=== PATIENT | male | born 1995 | race Caucasian/White ===

== ENCOUNTER 2025-02-20 18:42 | Emergency (ER) | payer OTHER ==
[~2025-02-20] VITALS: Ht 180.3 cm; Wt 69.6 kg
[2025-02-20] MEDS ORDERED: PRED10PA PO (18:52)
[2025-02-20] MEDS ORDERED: INFL100I IV (18:52)
[2025-02-20] MEDS ORDERED: PRED10TA2 PO (18:52)
[2025-02-20 20:57] LABS: BASO # 0.0 10^3/uL (0.0-0.2); BASO % 0.1 % (0.0-1.0); EOS # 0.0 10^3/uL (0.0-0.5); EOS % 0.0 % (0.0-3.0); LYMPH # 1.1 10^3/uL (1.5-5.0); LYMPH % 13.2 % (24.0-44.0); MONO # 1.5 10^3/uL (0.0-0.8); MONO % 18.2 % (2.0-8.0); NEUTROPHILS # 5.5 10^3/uL (1.5-8.5); NEUTROPHILS % 68.3 % (36.0-66.0); PLATELET COUNT, AUTOMATED 328 10^3/uL (150-450)
[2025-02-20 21:19] LABS: ALT/SGPT 35 U/L (7.0-40); AST/SGOT 13 U/L (<34); CALCIUM LEVEL 9.1 MG/DL (8.5-10.1); CARBON DIOXIDE LEVEL 34 MMOL/L (20-31); CHLORIDE LEVEL 101 MMOL/L (98-107); CREATININE FOR GFR 0.90 MG/DL (0.70-1.30); GLOMERULAR FILTRATION RATE > 90.0 (>60); POTASSIUM SERUM 4.2 MMOL/L (3.5-5.1); SODIUM LEVEL 143 MMOL/L (136-145)
[2025-02-20] MEDS: NS (Normal Saline) 0.9% 1,000 ML IV SCH (21:51)
[2025-02-20 22:05] LABS: KETONE, URINE AUTO RFX NEGATIVE (NEGATIVE); LEUKOCYTE ESTERASE UR AUTO RFX NEGATIVE (NEGATIVE); MUCUS, URINE RFX SMALL (NEGATIVE); NITRITE, URINE AUTO RFX NEGATIVE (NEGATIVE); RBC, URINE AUTO RFX 0 /HPF (0-3); SQUAM EPITHELIAL CELL UR AURFX 0 /HPF (0-6); WBC, URINE AUTO RFX 1 /HPF (0-3)
[2025-02-20 22:06] LABS: C REACTIVE PROTEIN QUANTITATIV 3.28 MG/DL (<1.0)
[2025-02-20 22:07] LABS: ERYTHROCYTE SEDIMENTATION RATE 22 mm/hr (0-15)
[2025-02-20] MEDS: MORPHINE 4 MG/ML 1 ML VIAL IV PRN (22:18)
[2025-02-20] MEDS: ONDANSETRON 4MG 2ML VIAL IV ONE (22:18)
[2025-02-20] MEDS: GASTROGRAFIN SOLUTION 30ML PO SCH (23:06)
[2025-02-21] MEDS ORDERED: ISOVUE-370 76% 100 ML VIAL As Ordered ONE (00:39)
[2025-02-21 04:00] VITALS: TEMP 98.7
[2025-02-21 05:00] VITALS: BP 117/69; O2SAT 97
[2025-02-21] MEDS ORDERED: PRED20TA PO (05:07)
== END 2025-02-21 05:34 | disposition home or self-care (01) ==
LOC: M ED 18:42
DX: K51.90 Ulcerative colitis, unspecified, without complications (principal)
CPT/HCPCS: 74177; 80048; 80076; 81001; 83605; 83690; 85025; 85652; 86140; 93041; 94760; 96361; 96374; 96375; 96376; 99285; J2405; J2919; Q9963; Q9967

== ENCOUNTER → 2025-03-17 | Outpatient (CLI) | payer OTHER ==
[~2025-03-17] MED LIST: INFL100I IV; PRED10PA PO; PRED10TA2 PO; PRED20TA PO
[2025-03-17 16:50] LABS: PLATELET COUNT, AUTOMATED 252 10^3/uL (150-450)
[2025-03-17 17:05] LABS: ERYTHROCYTE SEDIMENTATION RATE 36 mm/hr (0-15)
[2025-03-17 17:18] LABS: ALT/SGPT 12 U/L (7.0-40); AST/SGOT 15 U/L (<34); C REACTIVE PROTEIN QUANTITATIV 1.04 MG/DL (<1.0); CALCIUM LEVEL 9.0 MG/DL (8.5-10.1); CARBON DIOXIDE LEVEL 29 MMOL/L (20-31); CHLORIDE LEVEL 106 MMOL/L (98-107); CREATININE FOR GFR 0.98 MG/DL (0.70-1.30); GLOMERULAR FILTRATION RATE > 90.0 (>60); IRON (FE) 21 UG/DL (65-175); POTASSIUM SERUM 4.7 MMOL/L (3.5-5.1); SODIUM LEVEL 143 MMOL/L (136-145)
== END ==
LOC: M LAB 16:09
PROVIDERS: ATTEND Physician Assistant
DX: K51.918 Ulcerative colitis, unspecified with other complication (principal)

== ENCOUNTER → 2025-03-18 | Outpatient (REF) | payer OTHER | LOC: M LAB REF 10:07 | PROVIDERS: ATTEND Physician Assistant | DX: K51.918 Ulcerative colitis, unspecified with other complication (principal); K51.911 Ulcerative colitis, unspecified with rectal bleeding ==